=== PATIENT | male | born 1980 | race African-American/Black ===

== ENCOUNTER 2020-02-21 11:02 | Emergency (ER) | payer MEDICAID, OTHER ==
[~2020-02-21] VITALS: Ht 170.2 cm; Wt 130.0 kg
[~2020-02-21 11:02] MED LIST: APIX2.5T PO; APIX5TAB PO; CYCL5TAB PO; LEVE500T8 PO; LEVE500V6 PO; MIRT15TA3 PO
--- NOTE | 2020-02-21 12:04 | NUR ---
PATIENT ROOMED FROM [facility]
[2020-02-21] MEDS ORDERED: ALBUTEROL/IPRATROPIUM 2.5MG/0.5MG, 3 ML NPPB ONE (12:30)
[2020-02-21] MEDS ORDERED: ALBUTEROL/IPRATROPIUM 2.5MG/0.5MG, 3 ML ONE (12:34)
--- NOTE | 2020-02-21 12:47 | NUR ---
PT C/O SOB THAT STARTED 3 DAYS AGO. ACCOMPLANIED BY BODY ACHES. PT DENIES CP, N/V. PT DENIES FEVER. NO EDEMA NOTED. PT COUGHING OCCASINALLY WITH YELLOW SPUTUM PRODUCTION.
[2020-02-21 12:49] VITALS: BP 116/66
--- NOTE | 2020-02-21 13:19 | NUR ---
PT STATES HE FEELS MUCH BETTER SINCE RECEIVING BREATHING TX.
== END 2020-02-21 13:22 | disposition home or self-care (01) ==
LOC: ED 12:18
DX: J45.31 Mild persistent asthma with (acute) exacerbation (principal); Z20.828 Contact with and (suspected) exposure to other viral communicable diseases; R05 Cough; J02.9 Acute pharyngitis, unspecified; M79.10 Myalgia, unspecified site; R07.89 Other chest pain; F17.210 Nicotine dependence, cigarettes, uncomplicated; Z86.718 Personal history of other venous thrombosis and embolism
CPT/HCPCS: 71045; 87081; 87635; 87880; 99284; 99406

== ENCOUNTER 2020-08-06 21:51 | Emergency (ER) | payer MEDICAID ==
[~2020-08-06] VITALS: Ht 170.2 cm; Wt 108.0 kg
--- NOTE | 2020-08-06 22:08 | NUR ---
PT BIBA FROM [facility] WITH C/O LEFT LEG SWELLING, BILAT HAND NUMBNESS, AND SOB. 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 PT STATES PAIN IN LEG IS 10/10. PT RESTING IN GURNEY, MONITORING IN PLACE, NADN AT THIS TIME, GUARD AT BEDSIDE, PER PT NO NEEDS, WCTM.
[2020-08-06 23:05] LABS: BASOPHILS % (AUTO) 1 % (0-1); EOSINOPHILS % (AUTO) 2 % (1-7); LYMPHOCYTES % (AUTO) 45 % (22-44); MEAN CORPUSCULAR HEMOGLOBIN 29.6 pg (27.5-34.5); MEAN CORPUSCULAR HGB CONC 33.5 g/dL (33.2-36.2); MEAN PLATELET VOLUME 8.7 fL (7.4-10.4); MONOCYTES % (AUTO) 10 % (2-9); NEUTROPHILS % (AUTO) 43 % (42-75); PLATELET COUNT 210 x10^3/uL (130-400); RED BLOOD COUNT 4.62 x10^6/uL (4.38-5.82); RED CELL DISTRIBUTION WIDTH 14.9 % (9.4-14.8)
[2020-08-06 23:11] LABS: ALBUMIN 3.3 g/dL (3.4-5.0); ANION GAP 4 mmol/L (5-15); CALCIUM 8.7 mg/dL (8.5-10.1); CHLORIDE 108 mmol/L (98-107); CREATININE 1.26 mg/dL (0.7-1.3)
[2020-08-06 23:14] LABS: MD NO
--- NOTE | 2020-08-07 01:36 | NUR ---
REPORT CALLED TO [facility] [place].
--- NOTE | 2020-08-07 01:50 | NUR ---
REPORT GIVEN TO DOMINIC LAMBERT.
[2020-08-07 02:14] VITALS: BP 144/74
== END 2020-08-07 02:16 | disposition home or self-care (01) ==
LOC: ED 22:38
DX: I82.532 Chronic embolism and thrombosis of left popliteal vein (principal); I50.9 Heart failure, unspecified; M79.605 Pain in left leg; R19.7 Diarrhea, unspecified; J45.909 Unspecified asthma, uncomplicated; Z87.891 Personal history of nicotine dependence
CPT/HCPCS: 36415; 80048; 82040; 85025; 99284